=== PATIENT | female | born 1985 | race Caucasian/White ===

== ENCOUNTER 2018-09-28 19:17 | Emergency (ER) | payer SELFPAY ==
--- NOTE | 2018-09-28 19:27 | W.ED.GENAD ---
Discharge Plan Disposition Patient Disposition: HOME Discharge Details Chief Complaint: OD/Poison Clinical Impression: Opioid overdose Primary Care Provider: Nelly Hendrix ED Provider: Matthew Thompson Home Meds and New Rx's Prescriptions: New Narcan 4 mg/actuation spray,non-aerosol 1 spray AJAY ONCE PRN (Reason: opioid overdose) Qty: 2 RF: 0 Discharge Instructions Instructions: Narcotic Abuse (ED), Opioid Overdose (ED) Additional Instructions: Please stop using heroin. Please contact your primary care physician to arrange follow-up. Follow-up with [facility]. Return to the ER for any worsening or new concerning symptoms. Referrals: [facility] [Outside] Discharge Data Discharge Date/Time-TO BE ENTERED AT DEPARTURE: 09/28/18 21:34 Medical Decision Making 19:30 --patient seen immediately on arrival. Patient carried into emergency department by her significant other. Patient unresponsive, minimal respirations, patient immediately transferred to ED stretcher and mechanically ventilated with bag valve mask. Cyanosis improved as did oxygen saturation to the upper 90s. Naloxone 2 mg IN was administered and patient responded within minutes. Patient now alert and oriented and has full decisional making capacity. Patient refused Zofran. Refused IV and removed IV. 20:20 -- Patient reassessed and stable. Care signed out to Dr. Willams. HPI General Mode of arrival: ambulatory. Date/Time Provider Initiated Documentation: 09/28/18 19:27. Limitations to Documentation: no limitations. Information obtained by: patient. HPI Narrative: 32-year-old female presents with altered mental status. History and review of systems limited secondary to altered mental status. Patient carried into the emergency department by significant other who notes she overdosed on heroin which she used intravenously just prior to arrival. He notes that she has been unconscious and not breathing well for 15 minutes. Related Data Home Medications Medication Instructions Recorded Confirmed naloxone [Narcan] 1 spray AJAY ONCE PRN #2 each 09/28/18 Previous Rx's Medication Instructions Recorded naloxone [Narcan] 1 spray AJAY ONCE PRN #2 each 09/28/18 Allergies Allergy/AdvReac Type Severity Reaction Status Date / Time fluoxetine HCl [From Prozac] Allergy Mild Hives Unverified 09/28/18 19:40 Penicillins Allergy Mild Hives Unverified 09/28/18 19:40 sertraline HCl [From Zoloft] Allergy Mild Hives Unverified 09/28/18 19:40 Review of Systems Review of Systems Unobtainable due to mental status PFSH Social History Smoking and Tabacco status: Current every day Exam Const General: other (Unresponsive) Nutritional Appearance: thin Limitations: altered mental status HENMT Head: normocephalic and atraumatic Mouth: moist mucous membranes Eyes Sclera: scleral abnormality Pupils: pinpoint bilaterally Neck Neck: trachea midline and supple Resp Effort & Inspection: decreased respiratory effort and other (Minimal respirations) Auscultation: clear to auscultation bilaterally Cardio Jugular venous pressure: no JVD Rate: regular rate and not tachycardic Rhythm: regular rhythm GI Palpation: soft, not firm and not rigid Skin General skin exam: other (Cyanotic) Neuro General: not alert and not awake Extrem General: no edema Critical Care Time Critical Care Time: Yes Total Critical Care Time: 40 Attestation: I spent greater than 40 min addressing this patient's immediate life threats
[2018-09-28 19:33] VITALS: BP 101/80; PULSE 115; RESP 18; TEMP 37; O2SAT 98
--- NOTE | 2018-09-28 19:35 | ED.GENADUL_ITS ---
Discharge Plan Disposition Patient Disposition: HOME Discharge Details Chief Complaint: OD/Poison Clinical Impression: Opioid overdose Primary Care Provider: Nelly Hendrix ED Provider: Matthew Thompson Home Meds and New Rx's Prescriptions: New Narcan 4 mg/actuation spray,non-aerosol 1 spray AJAY ONCE PRN (Reason: opioid overdose) Qty: 2 RF: 0 Discharge Instructions Instructions: Narcotic Abuse (ED), Opioid Overdose (ED) Additional Instructions: Please stop using heroin. Please contact your primary care physician to arrange follow-up. Follow-up with [facility]. Return to the ER for any worsening or new concerning symptoms. Referrals: [facility] [Outside] Discharge Data Discharge Date/Time-TO BE ENTERED AT DEPARTURE: 09/28/18 21:34 Medical Decision Making 19:30 --patient seen immediately on arrival. Patient carried into emergency department by her significant other. Patient unresponsive, minimal respirations, patient immediately transferred to ED stretcher and mechanically ventilated with bag valve mask. Cyanosis improved as did oxygen saturation to the upper 90s. Naloxone 2 mg IN was administered and patient responded within minutes. Patient now alert and oriented and has full decisional making capacity. Patient refused Zofran. Refused IV and removed IV. 20:20 -- Patient reassessed and stable. Care signed out to Dr. Willams. HPI General Mode of arrival: ambulatory . Date/Time Provider Initiated Documentation: 09/28/18 19:27 . Limitations to Documentation: no limitations . Information obtained by: patient . HPI Narrative: 32-year-old female presents with altered mental status. History and review of systems limited secondary to altered mental status. Patient carried into the emergency department by significant other who notes she overdosed on heroin which she used intravenously just prior to arrival. He notes that she has been unconscious and not breathing well for 15 minutes. Related Data Home Medications Medication Instructions Recorded Confirmed naloxone [Narcan] 1 spray AJAY ONCE PRN #2 each 09/28/18 Previous Rx's Medication Instructions Recorded naloxone [Narcan] 1 spray AJAY ONCE PRN #2 each 09/28/18 Allergies Allergy/AdvReac Type Severity Reaction Status Date / Time fluoxetine HCl [From Prozac] Allergy Mild Hives Unverified 09/28/18 19:40 Penicillins Allergy Mild Hives Unverified 09/28/18 19:40 sertraline HCl [From Zoloft] Allergy Mild Hives Unverified 09/28/18 19:40 Review of Systems Review of Systems Unobtainable due to mental status PFSH Social History Smoking and Tabacco status: Current every day Exam Const General: other (Unresponsive) Nutritional Appearance: thin Limitations: altered mental status HENMT Head: normocephalic and atraumatic Mouth: moist mucous membranes Eyes Sclera: scleral abnormality Pupils: pinpoint bilaterally Neck Neck: trachea midline and supple Resp Effort & Inspection: decreased respiratory effort and other (Minimal respirations) Auscultation: clear to auscultation bilaterally Cardio Jugular venous pressure: no JVD Rate: regular rate and not tachycardic Rhythm: regular rhythm GI Palpation: soft, not firm and not rigid Skin General skin exam: other (Cyanotic) Neuro General: not alert and not awake Extrem General: no edema Critical Care Time Critical Care Time: Yes Total Critical Care Time: 40 Attestation: I spent greater than 40 min addressing this patient's immediate life threats
--- NOTE | 2018-09-28 19:36 | NUR.NOTE ---
patient was put on er strecther, immediately bagged vlave mask 15lpm, patient's original parr color returned to pink, after 2 mg narcan total patient regained consciousness and currently awake and alert x 3, denies nausea at this time. patient pulled out her IV, made aware. Nursing Note:
--- NOTE | 2018-09-28 20:49 | NUR.NOTE ---
patient ambulated steadily to restroom and back. patient reported nausea, medicated with 4mg zofran odt and given apple jiuce Nursing Note:
[2018-09-28] MEDS: Ondansetron O.D.T. 4 MG TABEF (20:51)
--- NOTE | 2018-09-28 21:26 | NUR.NOTE ---
nausea improved, patient awake and alert x 3, patient received discharge and follow up instruciton per MD order Nursing Note:
[2018-09-28 21:27] VITALS: BP 109/73; PULSE 110; RESP 16; O2SAT 99
== END 2018-09-28 21:34 | disposition home or self-care (01) ==
LOC: ER 19:59
PROVIDERS: Emergency Provider Student in an Organized Health Care Education/Training Program; PCP Nurse Practitioner Family
DX: T40.1X1A Poisoning by heroin, accidental (unintentional), initial encounter (principal); R23.0 Cyanosis; F11.920 Opioid use, unspecified with intoxication, uncomplicated
CPT/HCPCS: 99291

== ENCOUNTER 2019-07-30 09:37 | Outpatient (CLI) | payer MEDICAID, SELFPAY ==
[2019-07-30 10:11] LABS: Abs Immature Grans 0.02 k/cumm (0.0-0.09); Absolute Basophil Count 0.02 k/cumm (0.0-0.2); Absolute Lymphocyte Count 1.95 k/cumm (1.2-3.4); Absolute Monocyte Count 0.46 k/cumm (0.11-0.7); Absolute Neutrophil Count 4.36 k/cumm (1.2-6.7); Basophils % 0.3; Eosinophils % 1.4; HCT 44.4 % (36.0-46.0); HGB 15.7 g/dL (12.0-15.5); Immature Grans % 0.3; Lymphocytes % 28.2; Mean Corp. HGB Concentration 35.4 g/dL (32.0-36.0); Mean Corpuscular Hemoglobin 30.2 pg (27.0-33.0); Mean Corpuscular Volume 85.4 fL (80-95); Mean Platelet Volume 9.6 fL (8.0-11.0); Monocytes % 6.7; Neutrophils % 63.1; Platelet Count 255 x1000/uL (130-400); RBC Distribution Width 12.7 % (11.7-14.6); White Blood Cell Count 6.91 k/cumm (4.4-10.8)
[2019-07-30 11:20] LABS: ALT 16 U/L (14-59); AST 15 U/L (15-37); Albumin 4.2 g/dL (3.4-5.0); Alkaline Phosphatase 77 U/L (46-116); Anion Gap 11.3 mmol/L (3-11); BUN 16 mg/dL (7-18); Bilirubin, Total 0.6 mg/dL (0.2-1.0); CO2 25.7 mmol/L (21.0-32.0); Chloride 100 mmol/L (98-107); Glucose 97 mg/dL (74-106); Sodium 137 mmol/L (136-145); Total Protein 7.4 g/dL (6.4-8.2)
[2019-07-31 10:04] LABS: HBs Antibody, Quant 587.1 mIU/mL (See Note); Hepatitis B Surface Ab Positive (See Note)
[2019-07-31 10:12] LABS: Hepatitis B Surface Ag Negative (Negative)
[2019-07-31 10:52] LABS: Hepatitis C Ab w Rflx HCV PCR Reactive (Negative)
[2019-07-31 11:00] LABS: Hep A Total Ab w Rflx IgM Negative (Negative)
[2019-07-31 11:38] LABS: Syphilis Serology (RPR) Negative (Negative)
[2019-07-31 13:37] LABS: HIV-1/2 Ag & Ab Screen Negative (Negative)
[2019-08-04 16:02] LABS: HCV RNA Detection Quantitative 0 IU/mL (Undetected)
== END 2019-07-30 09:57 ==
PROVIDERS: PCP Nurse Practitioner Family; Visit Provider Nurse Practitioner Family
DX: F11.20 Opioid dependence, uncomplicated (principal); Z79.899 Other long term (current) drug therapy; Z11.3 Encounter for screening for infections with a predominantly sexual mode of transmission; Z11.4 Encounter for screening for human immunodeficiency virus [HIV]; Z01.84 Encounter for antibody response examination
CPT/HCPCS: 36415; 80053; 86706; 86709; 86803; 87340; 87389; 85025; 86592; 87522